=== PATIENT | male | born 1970 | race Caucasian/White ===

== ENCOUNTER 2020-04-12 16:32 | Emergency (ER) | payer OTHER, SELFPAY ==
[2020-04-12 16:35] VITALS: BP 150/80; PULSE 99; RESP 20; TEMP 37.2; O2SAT 97
--- NOTE | 2020-04-12 16:49 | ED.GENADULT ---
HPI - General Adult General Chief complaint: Skin/Abscess/Foreign Body Stated complaint: bites on legs/groin/stomach Time Seen by Provider: 04/12/20 16:49 Source: patient Mode of arrival: ambulatory Limitations: no limitations History of Present Illness HPI narrative: 49-year-old male patient presents to the [facility] with complaints of a rash bilateral lower extremities that has now gone up to his groin for the past 2 days. Patient states that over the weekend they went camping in [place] over the weekend. Patient states that they were [address] camping. Patient states that he noticed the rash to the bilateral lower extremities on Saturday evening. Patient states that he had 2 dogs with them at this time they are camping and states that they had little black dots all over their belly and took them to the vet's that they had some ticks on them. Patient states that he has developed a rash with little red dots and states that they are very itchy. Denies any chest pain, shortness of breath or fevers. Patient states he has tried [id number] hydrocortisone and anti-itch cream along with some antihistamines that has not been helping. Related Data Home Medications Medication Instructions Recorded Confirmed amitriptyline 25 mg PO HS 04/12/20 04/12/20 Allergies Allergy/AdvReac Type Severity Reaction Status Date / Time hydrocodone AdvReac Nausea and Verified 04/12/20 16:51 Vomiting Review of Systems Review of Systems: Narrative: CONSTITUTIONAL: Denies fever, chills, or sweats. EYES: Denies visual changes, redness, or discharge. ENT: Denies rhinorrhea, congestion, sore throat, or otalgia. CARDIOVASCULAR: Denies chest pain, palpitations, or edema. RESPIRATORY: Denies cough or dyspnea. GASTROINTESTINAL: Denies abdominal pain, nausea, vomiting, or diarrhea. GENITOURINARY: Denies dysuria or hematuria. SKIN: Patient has rash with itching to bilateral lower extremities and groin area x2 days MUSCULOSKELETAL: Denies back pain, joint pain, or myalgia. NEUROLOGIC: Denies headache, numbness, or weakness. PSYCHIATRIC: Denies anxiety or depression. [facility] Past Medical History Medical History Asthma Bronchitis Musculoskeletal disorder Herniated disc 1989, bilateral carpal tunnel Pneumonia Substance use disorder Marijuana Surgical History Surgical History History of appendectomy Comments At the time of my signature I agree with nursing past medical history, surgical, social, and family history. There is no relevant family history pertinent to the presenting complaint. Exam Narrative: Exam Narrative: GENERAL: Well-appearing, well-nourished, and in no acute distress. HEAD: Normocephalic, atraumatic. EYES: PERRLA and EOMI. ENT: Nares clear, no rhinorrhea or epistaxis. Mucous membranes moist. NECK: Supple. No lymphadenopathy CHEST: Clear to auscultation. No respiratory distress. HEART: Regular rate and rhythm. No murmur heard. Normal peripheral pulses. ABDOMEN: Soft, nontender, nondistended, normal active bowel sounds. EXTREMITIES: Normal range of motion. No edema. SKIN: Warm, dry, patient has a small pinpoint flat red macules noted to the generalized area of bilateral lower extremities. There seems to be some blisterlike areas to the middle of the bites on some of them. No open wounds or drainage noted. NEURO: No focal deficits. Alert and oriented x3. Course Vital Signs Vital signs: Vital Signs Temperature 37.2 C 04/12/20 16:35 Pulse Rate 99 04/12/20 16:35 Respiratory Rate 20 04/12/20 16:35 Blood Pressure 150/80 H 04/12/20 16:35 Pulse Oximetry 97 04/12/20 16:35 Temperature 37.2 C 04/12/20 16:35 Pulse Rate 99 04/12/20 16:35 Respiratory Rate 20 04/12/20 16:35 Blood Pressure 150/80 H 04/12/20 16:35 Pulse Oximetry 97 04/12/20 16:35 Vital signs reviewed. The patient has been info
== END 2020-04-12 17:05 | disposition home or self-care (01) ==
PROVIDERS: Emergency Provider Nurse Practitioner Family; PCP Internal Medicine
DX: S80.862A Insect bite (nonvenomous), left lower leg, initial encounter (principal); S80.861A Insect bite (nonvenomous), right lower leg, initial encounter; W57.XXXA Bitten or stung by nonvenomous insect and other nonvenomous arthropods, initial encounter; J45.909 Unspecified asthma, uncomplicated; F41.9 Anxiety disorder, unspecified
CPT/HCPCS: 99213; G0463

== ENCOUNTER 2021-01-16 14:26 | Emergency (ER) | payer BC, SELFPAY ==
[2021-01-16 14:33] VITALS: BP 136/86; PULSE 91; RESP 18; TEMP 36.8; O2SAT 99
--- NOTE | 2021-01-16 15:29 | ED.EXTPRO ---
HPI - Extremity Problem General Chief complaint: Extremity Problem,Nontraumatic Stated complaint: left knee pain Time Seen by Provider: 01/16/21 15:29 Source: patient Mode of arrival: ambulatory Limitations: no limitations History of Present Illness HPI Narrative: Jose Rafael Fenton is a 50 yo kyra with a PMH of asthma , bronchitis , substance use disorder ,back pain and surgery to [facility] with left knee pain and swelling. He is working on his knees for last couple weeks doing no home repair and his leg has been giving him pain and swelling he went to [facility] and they did tap on the knee after an x-ray which must have showed an effusion. Today he states the knee is swollen again hurts more than it did before. Related Data Allergies Allergy/AdvReac Type Severity Reaction Status Date / Time hydrocodone AdvReac Nausea and Verified 01/16/21 15:01 Vomiting Review of Systems Review of Systems: Narrative: CONSTITUTIONAL: Denies fever, chills, sweats. EYES: Denies visual changes, redness, discharge. ENT: Denies rhinorrhea, congestion, sore throat, otalgia. CARDIOVASCULAR: Denies chest pain, palpitations, edema. RESPIRATORY: Denies dyspnea, wheezing, cough GASTROINTESTINAL: Denies abdominal pain, nausea, vomiting, diarrhea. GENITOURINARY: Denies dysuria, hematuria, abnormal discharge SKIN: Denies rash or itching. NEUROLOGIC: Denies numbness, or focal weakness. PSYCHIATRIC: Denies anxiety or depression. Left knee pain and swelling PMFSH Past Medical History Medical History (Updated 01/16/21 @ 15:42 by Ally Sarmiento CNP) Asthma Bronchitis Musculoskeletal disorder Herniated disc 1989, bilateral carpal tunnel Pneumonia Substance use disorder Marijuana Surgical History Surgical History History of appendectomy Social History Social History (Updated 01/16/21 @ 15:38 by Ally Sarmiento CNP) Smoking packs per day: 1 Smoking cigarettes per day: 20.0 Smoking status: Current every day smoker Substance use: current Comments At time of signature, I agree with nursing past medical, surgical, social and family history. There is no relevant family history pertinent to the presenting complaint. Exam Narrative: Exam Narrative: GENERAL: This is a well-nourished, well-developed patient, in mild distress. HEAD: normocephalic, atraumatic. EYES. Sclera clear/white. Vision is grossly intact. EARS: External ears normal, Hearing grossly intact. NOSE: External nose normal without nasal discharge, nares without redness, no rhinorrhea. THROAT: Mucous membranes moist, NECK: Neck supple, CARDIOVASCULAR: Regular rate and rhythm without murmurs, gallops, or rubs. RESPIRATORY: Clear to auscultation. Breath sounds equal bilaterally. No wheezes, rales, or rhonchi. GASTROINTESTINAL: Abdomen soft, SKIN: warm, intact with no suspicious lesions or rash, good texture and turgor. NEURO: awake, alert, and oriented to person, place and time. There were no obvious focal neurologic abnormalities. Steady gait EXTREMITIES: Normal range of motion. His left knee is mildly swollen and super patellar area more medial than lateral, he is unable to fully extend or flex his knee without pain which he describes as 9 out of 10 BACK: Nontender without deformity Course Course Emergency Course: [facility] knee looking for some pain relief are remedy for left effusion. Was seen in ER last night where they did a tap but knee is again swollen Oral prednisone, tramadol, given orthopedic referral Vital Signs Vital signs: Vital Signs Temperature 98.3 F 01/16/21 14:33 Pulse Rate 91 01/16/21 14:33 Respiratory Rate 18 01/16/21 14:33 Blood Pressure 136/86 01/16/21 14:33 Pulse Oximetry 99 01/16/21 14:33 Temperature 98.3 F 01/16/21 14:33 Pulse Rate 91 01/16/21 14:33 Respiratory Rate 18 01/16/21 14:33 Blood Pressure 136/86 05
[2021-01-16] MEDS: KETOROLAC (*BKC) 60 MG/2 ML VIAL IM (15:56)
[2021-01-16] MEDS: predniSONE 20 MG TABLET 60 MG PO (15:56)
== END 2021-01-16 16:15 | disposition home or self-care (01) ==
PROVIDERS: Emergency Provider Nurse Practitioner
DX: M25.562 Pain in left knee (principal); J45.909 Unspecified asthma, uncomplicated; F17.210 Nicotine dependence, cigarettes, uncomplicated
CPT/HCPCS: 96372; 99213; G0463; J1885; J7512

== ENCOUNTER 2021-05-01 16:38 | Emergency (ER) | payer BC, SELFPAY ==
--- NOTE | ~2021-05-01 | XR_ITS ---
EXAMINATION: XR chest 2V DATE: 05/01/2021 17:09 INDICATION: Cough and shortness of breath TECHNIQUE: PA and lateral views of the chest are obtained. COMPARISON: 02/05/2018 FINDINGS: The lungs are free of acute opacities. There is no pleural effusion or pneumothorax. The ca rdiomediastinal silhouette is normal. There is mild thoracic spondylosis. IMPRESSION: 1. No acute cardiopulmonary abnormality. Reviewed, dictated and finalized at location A.
[2021-05-01 16:45] VITALS: BP 135/77; PULSE 77; RESP 22; TEMP 37.2; O2SAT 99
--- NOTE | 2021-05-01 16:58 | ED.URI ---
HPI - URI/Sore Throat General Chief Complaint: Upper Respiratory Infection Stated Complaint: congestion and coughing Time Seen by Provider: 05/01/21 16:50 Source: patient and RN notes reviewed History of Present Illness HPI Narrative: Patient is a 50-year-old male who presents the urgent care with complaints of 4-day chest congestion and cough. Patient states he has had increased shortness of breath and wheezing. States that he is asthmatic and is a current smoker. Patient has been using her inhaler with mild improvement. Denies of any fever, nausea, vomiting. Currently denies of any chest pains. No other acute complaints. No acute distress noted. Patient aware of the plan of care. Some parts of this dictation were generated by voice recognition software and may contain typographical and/or grammatical inaccuracies. Related Data Home Medications Medication Instructions Recorded Confirmed albuterol sulfate 2 puff INHALATION QID PRN 05/01/21 05/01/21 Allergies Allergy/AdvReac Type Severity Reaction Status Date / Time hydrocodone AdvReac Nausea and Verified 05/01/21 16:58 Vomiting Review of Systems Review of Systems: CONSTITUTIONAL: Denies fever, chills, or sweats. Reports of fatigue EYES: Denies visual changes, redness, or discharge. ENT: Denies rhinorrhea, otalgia. Reports of head congestion and postnasal drainage CARDIOVASCULAR: Denies chest pain, palpitations, or edema. RESPIRATORY: Reports of cough with intermittent dyspnea and wheezes with chest congestion GASTROINTESTINAL: Denies abdominal pain, nausea, vomiting, or diarrhea. GENITOURINARY: Denies dysuria or hematuria. SKIN: Denies rash or itching. MUSCULOSKELETAL: Denies back pain, joint pain, or myalgia. NEUROLOGIC: Denies headache, numbness, or weakness. All other systems reviewed are negative, except as documented in HPI. [facility] Past Medical History Medical History (Updated 05/01/21 @ 17:23 by CORBIN Parisi) Asthma Bronchitis Musculoskeletal disorder Herniated disc 1989, bilateral carpal tunnel Pneumonia Substance use disorder Marijuana Surgical History Surgical History History of appendectomy Social History Social History (Updated 01/16/21 @ 15:38 by Ally Sarmiento CNP) Smoking packs per day: 1 Smoking cigarettes per day: 20.0 Smoking status: Current every day smoker Substance use: current Comments At the time of my signature, I reviewed and agree with the nursing past medical, surgical, social, and family history. There is no relevant family history pertinent to the patient complaint. Exam Narrative: GENERAL: This is a well-nourished, well-developed patient, in no apparent distress. HEAD: normocephalic, atraumatic. EYES: PERRL. Sclera clear/white. Vision is grossly intact. EARS: External ears normal, auditory canals clear and without drainage, TMs normal without perforation. Hearing grossly intact. NOSE: External nose normal with no obvious nasal discharge, nares without redness, no rhinorrhea. THROAT: Mucous membranes moist, posterior pharynx clear. Moderate postnasal drainage NECK: Neck supple, non-tender without lymphadenopathy, masses or thyromegaly. CARDIOVASCULAR: Regular rate and rhythm without murmurs, gallops, or rubs. RESPIRATORY: Crackles and inspiratory/expiratory wheezes bibasilar. Inspiratory and expiratory wheezes throughout SKIN: warm, intact with no suspicious lesions or rash, good texture and turgor. NEURO: awake, alert, and oriented to person, place and time. There were no obvious focal neurologic abnormalities. EXTREMITIES: No clubbing, cyanosis, or edema. Course Vital Signs Vital signs: Vital Signs Temperature 99.0 F 05/01/21 16:45 Pulse Rate 77 05/01/21 16:45 Respiratory Rate 22 H 05/01/21 16:45 Blood Pressure 135/77 05/01/21 16:45 Pulse Oximetry 99 05/01/21 16:45 Temperature 99.0 F 05/01/21 16:45 Pulse
--- NOTE | 2021-05-02 14:12 | PC.NURSE ---
[facility] form completed and submitted previously, no copy on chart.
== END 2021-05-01 17:25 | disposition home or self-care (01) ==
PROVIDERS: Emergency Provider Nurse Practitioner Family; PCP Internal Medicine
DX: J40 Bronchitis, not specified as acute or chronic (principal); Z20.822 Contact with and (suspected) exposure to COVID-19; F17.210 Nicotine dependence, cigarettes, uncomplicated; J45.909 Unspecified asthma, uncomplicated
CPT/HCPCS: 71046; 87426; 99213; C9803; G0463

== ENCOUNTER 2022-01-31 17:04 | Emergency (ER) | payer SELFPAY ==
--- NOTE | 2022-01-31 17:49 | ED.URI ---
HPI - URI/Sore Throat General Stated Complaint: Left leg bravo injury Related Data Home Medications Medication Instructions Recorded Confirmed albuterol sulfate 90 mcg/actuation 2 puff inhalation QID PRN sob 05/01/21 05/01/21 aerosol inhaler Allergies Allergy/AdvReac Type Severity Reaction Status Date / Time hydrocodone AdvReac Nausea and Verified 09/20/21 14:35 Vomiting PMFSH Past Medical History Medical History (System 09/20/21 @ 14:35 by Vicente Olivarez) Asthma Bronchitis Musculoskeletal disorder Herniated disc 1989, bilateral carpal tunnel Pneumonia Substance use disorder Marijuana Surgical History Surgical History (System 09/20/21 @ 14:35 by Vicente Olivarez) History of appendectomy Social History Social History (System 09/20/21 @ 14:35 by Vicente Olivarez) Smoking packs per day: 1 Smoking cigarettes per day: 20.0 Smoking status: Current every day smoker Substance use: current Discharge Plan Discharge Prescriptions: No Action albuterol sulfate 90 mcg/actuation Hfa Aerosol Inhaler 2 puff INHALATION QID PRN (Reason: sob) doxycycline monohydrate 100 mg capsule 100 mg PO BID Qty: 20 0RF methylprednisolone [Medrol (Yehuda)] 4 mg tablets,dose pack See Rx Instructions .ROUTE .COMPLEX Qty: 21 0RF Rx Instructions: orally per package directions albuterol sulfate 90 mcg/actuation HFA aerosol inhaler 2 puff INHALATION QID PRN (Reason: shortness of breath or wheezing) Qty: 8 0RF Follow-up/Referrals: Isidro,MD Philip [Primary Care Provider] -
--- NOTE | 2022-02-05 10:34 | PC.NURSE ---
01/31/2022--- 170--- while registering to be seen, provider spoke with pt regarding reason to be seen. Pt became upset and decided to leave without being seen by provider.
== END 2022-01-31 17:05 | disposition left against medical advice (07) ==
LOC: EXPBETH 17:09
PROVIDERS: Emergency Provider Registered Nurse; PCP Hospitalist
DX: Z53.21 Procedure and treatment not carried out due to patient leaving prior to being seen by health care provider (principal)
CPT/HCPCS: 99199